=== PATIENT | female | born 1955 | race Caucasian/White ===

== ENCOUNTER → 2017-03-04 | Outpatient (CLI) | payer BC ==
--- NOTE | 2017-03-04 16:28 | DI ---
Indication: ITS.REASON: M19.90 UNSPECIFIED OSTEOARTHRITIS PROCEDURE: KNEE BILAT 3 VIEWS: Encounter: Initial Comparison: March 11, 2016 Findings: Right knee: No acute fracture or dislocation. Mild medial compartment joint space narrowing is similar to the prior study. No joint effusion. Small patellofemoral compartment osteophytes. Left knee: No acute fracture or dislocation. Mild medial compartment joint space narrowing is similar to the prior study. There is medial meniscal chondrocalcinosis with small tricompartmental osteophytes. No gross joint effusion. Impression: Right knee: Stable mild to moderate osteoarthritis. Left knee: Stable mild to moderate osteoarthritis. .
--- NOTE | 2017-03-04 16:45 | DI ---
Indication: ITS.REASON: M19.90 UNSPECIFIED OSTEOARTHRITIS PROCEDURE: LUMBAR SPINE COMP W/O BEND: Encounter: Initial Comparison: None Findings: No acute fracture identified. Alignment of the lumbar spine shows grade 1 anterolisthesis of L4 on L5 which appears degenerative. No subluxation. Mild disk space narrowing at L3-L4 and L4-L5. Degenerative facet disease at L4-S1. Cholecystectomy clips with a displaced clip noted incidentally in the pelvis. The oblique views show no obvious pars defects. Impression: Degenerative disk and facet disease as above. .
== END ==
LOC: IMA 15:50
PROVIDERS: ATTEND Family Medicine
DX: M17.0 Bilateral primary osteoarthritis of knee (principal); M51.36 Other intervertebral disc degeneration, lumbar region

== ENCOUNTER 2017-04-29 07:30 | Inpatient (IN) ==
[~2017-04-29 07:30] MED LIST: ACETAMINOPHEN 500 MG TABLET PO ONE; DEXAMETHASONE 4 MG/ML INJECTION IVP ONE; FAMOTIDINE PREMIX 20 MG/50 ML BAG IV ONE; LIDOCAINE 1% (10mg/ml) 10mL MDV SQ ONE; LR 1,000 ML IV SCH; MELOXICAM 15 MG TABLET PO ONE; METOCLOPRAMIDE 10mg/2ml INJECTION IVP ONE; NOZIN NASAL SWAB NAS ONE; ONDANSETRON 4 MG/2 ML INJECTION IVP ONE; SALINE FLUSH 10ml SYRINGE IVF PRN
[2017-04-29] MEDS ORDERED: EPINEPHrine 0.25 MG, BUPIVACAINE 0.25% PF 30 ML, MORPHINE SULFATE 15 MG, KETOROLAC INJ ... OPSITE ONE (08:00)
--- NOTE | 2017-04-29 10:02 | Anesthesia Preoperative Report ---
Anesthesia Preoperative Record - Date and Time Date: 04/29/17 Preoperative Diagnosis: OA knee M17.12 Proposed Procedure: Left TKA NPO Since Date: 04/29/17 NPO Since Time: 00:00 Allergies/Adverse Reactions: Allergies Allergy/AdvReac Type Severity Reaction Status Date / Time No Known Allergies Allergy Unverified 07/13/13 17:06 - Vital Signs Vital Signs: Temp Pulse Resp BP Pulse Ox 98.3 F 101 H 14 182/85 H 93 04/29/17 09:26 04/29/17 09:44 04/29/17 09:26 04/29/17 09:26 04/29/17 09:26 Height and Weight: Height 1.63 m Weight 86.5 kg Body Mass Index 32.7 - Medications Inpatient Medications: Current Medications Epinephrine HCl 0.25 mg/Bupivacaine HCl 30 ml/Morphine Sulfate 15 mg/Ketorolac Tromethamine 60 mg/Sodium Chloride 65.25 mls @ 1 mls/hr OPSITE INTRAOP ONE PRN Reason: Protocol Stop: 05/02/17 01:14 Lactated Ringer's (Lactated Ringers) 1,000 mls @ 50 mls/hr IV .Q20H PHANI Miscellaneous Medication (Tranexamic 1gm/Ns 100 Irr Mix) 100 ml IR O ONE Stop: 04/29/17 14:50 Sodium Chloride (Iv Flush) 10 - 80 ml IVF PRN PRN PRN Reason: [place] Home Medications: Home Medications Medication Instructions Recorded Confirmed Type Acetaminophen [Tylenol] 1,000 mg PO Q6H PRN 04/07/17 04/29/17 History Calcium Carbonate [Calcium] 500 mg PO DAILY 04/07/17 04/29/17 History Fluoxetine HCl [Prozac] 40 mg PO BID 04/07/17 04/29/17 History Multivitamin [One Daily 1 each PO DAILY 04/07/17 04/29/17 History Multivitamin] Nortriptyline [Pamelor] 1 cap PO HS 04/07/17 04/29/17 History Pregabalin Cap [Lyrica] 1 cap PO BID 04/07/17 04/29/17 History Verapamil HCl [Verapamil ER] 120 mg PO DAILY 04/07/17 04/29/17 History Omeprazole [Prilosec] 1 cap PO ACB 04/23/17 04/29/17 History Is Patient on Beta Jerardo?: No - Medical History Cardiovascular: Reports: Hypertension Neuro/Musculoskeletal: Reports: Depression - Surgical History GI Surgery/Treatments: Reports: Cholecystectomy (Lap) Reproductive Surgery/Treatment: Reports: Hysterectomy (Abd) - Social History Smoking Status: Never smoker Hx Chewing Tobacco Use: No Second Hand Exposure: No Time spent discussing smoking cessation with patient: 3 to 10 minutes Substance Use Type: does not use Alcohol Intake Frequency: holidays/special occasions only - Pertinent Findings EKG Rhythm: Normal Sinus Rhythm - Physical Exam Respiratory Exam: Present: lungs clear Cardiovascular Exam: Present: regular rate and rhythm - Airway Assessment Mallampati Score: II TMD: 3 Fingerbreadths Neck Extension: fair Overall Assessment: no airway concerns - ASA ASA Score: 2 - Plan Regional/Trunk Block: Spinal - Discussion Discussion: Discussed risks/options/alternatives of anesthesia and questions answered. Patient consents. Nursing pain assessment noted. Attestation Statement: Prior to the delivery of any anesthetic medication, I examined the patient, developed the plan, obtained the patient's consent and discussed the risk and benefits of the procedure with the patient/guardian.
[2017-04-29] MEDS ORDERED: PROPOFOL 500 MG/50 ML VIAL IV ONE ×2 (10:15→13:03)
[2017-04-29] MEDS ORDERED: MIDAZOLAM 2mg/2ml INJECTION ONE (10:16)
[2017-04-29] MEDS ORDERED: VANCOMYCIN 1,000 MG INJECTION ONE (11:17)
[2017-04-29] MEDS: CEFAZOLIN 1 G INJECTION IVP ONE ×2 (11:46→15:43)
--- NOTE | 2017-04-29 12:41 | Anesthesia Postoperative Note ---
- Date and Time Date: 04/29/17 Time: 12:41 - Status Patient Participated in Evaluation: Patient Participated in Person Vital Signs: Temp Pulse Resp BP Pulse Ox 98.3 F 101 H 14 138/65 93 04/29/17 09:26 04/29/17 09:44 04/29/17 09:26 04/29/17 10:06 04/29/17 09:26 Respiratory Function: Airway Patent Cardiovascular Function: Regular Pulse EKG Rhythm: Normal Sinus Rhythm Mental Status: Alert and Oriented Pain Intensity: 0 Hydration: IV Infusing Complications During Recover: None Apparent - Follow-Up Instructions Instructions: Per Surgeon
[2017-04-29] MEDS: TRANEXAMIC ACID 1gm/NS 100ml IRR MIX IR ONE ×2 (13:13→15:44)
[2017-04-29] MEDS: VANCOMYCIN 1,000 MG INJECTION IAR ONE ×2 (13:17→15:43)
--- NOTE | 2017-04-29 13:32 | Operative Note ---
- Procedure Date of Admission: 04/29/17 Side: left Preoperative Diagnosis: knee primary DJD Postoperative Diagnosis: Same as preoperative diagnosis. Operation: total knee arthroplasty (left) Surgeon: Kvng Mittal MD Rolling Mill Operator Helper: JODIE Pinedo Complications: None. Regional/Trunk Block: Spinal Peripheral Nerve Block: Saphenous-Left Estimated Blood Loss: See Anesthesia Record. Fluids: Please see Anesthesia Record. Description of Procedure: Mrs. Tellez and her left knee were identified and marked in the preoperative holding area. She was brought back to the operating suite and placed supine on the operating table. Spinal anesthetic was administered. The operative lower extremity was prepped and draped in a sterile fashion. Timeout was performed. She had a varus deformity which is partially correctable. An anterior midline incision followed by medial parapatellar arthrotomy was performed. The tourniquet was inflated briefly during the approach and then again until cementing. Hemostasis was obtained with electrocautery. The patella was resurfaced to a size 29. A distal femoral osteotomy was then performed in 5 of valgus using intramedullary guide. The femur was sized at a 3 and rotation set using the epicondylar axis. Distal femoral cuts were performed with a 4-in-1 cutting block. A proximal tibial cut was then made perpendicular to its long axis using an extramedullary guide. At this point remaining meniscus and osteophytes were removed and joint cocktail was injected throughout soft tissue. Trial components were placed with a 11 mm spacer. This allowed for full extension and flexion and the patella tracked well. The leg was then exsanguinated and the tourniquet inflated to 250 mmHg. The tibia was then stamped at a size 3 at the proper rotation. The bone was then prepared for cementing and [employer] components were cemented into place and allowed to cure in extension. The tourniquet was then let down and hemostasis obtained with electrocautery. I then trialed with a 13 spacer and this felt good with full extension and she was well balanced. Betadine solution was used during the curing period for 3 minutes. 1 g of TXA was allowed to sit in the wound for 5 minutes and then suctioned out. 1 g of vancomycin powder was placed into the joint before the capsulotomy was repaired with #1 Vicryl. I then left my assistant teaching professor close the subcutaneous tissue and skin with 2-0 Vicryl and Monocryl. Dermabond was used on the skin. The drapes were then removed and she was taken to recovery room under the care of anesthesia.
--- NOTE | 2017-04-29 13:52 | History & Physical Update ---
- History and Physical Update Date: 04/29/17 Update: I evaluated this patient and found no changes in the history and clinical exam findings. The treatment plan and recommendations are also unchanged from the previous documentation.
--- NOTE | 2017-04-29 14:18 | Anesthesia Procedure Note ---
Peripheral Nerve Blockade - Procedure Physician: Haroon Mittal MD Date: 04/29/17 Surgical Procedure: Left total knee arthroplasty Discussion: Discussed risks/options/alternatives of anesthesia and questions answered. Patient consents. Nursing pain assessment noted. Block Start: 14:09 Block Stop: 14:14 Blocked Employed: Adductor Canal, Single Injection Indication: Post-Operative Pain Approach: Left Side Confirmed Position: Supine Patient: Consent, Risks/Benefits Discussed, Informed, Post Block Act. Discussed IV Sedation: No Initial Vital Signs: Temperature 98.3 F 04/29/17 09:26 Temperature Source Oral 04/29/17 09:26 Pulse Rate 116 H 04/29/17 09:26 Respiratory Rate 14 04/29/17 09:26 Blood Pressure 182/85 H 04/29/17 09:26 Blood Pressure Mean 117 04/29/17 09:26 Blood Pressure Position Sitting 04/29/17 09:26 Pulse Oximetry 93 04/29/17 09:26 Oxygen Delivery Method 04/29/17 09:26 Post Vital Signs: Temp Pulse Resp BP Pulse Ox 98.3 F 101 H 14 138/65 93 04/29/17 09:26 04/29/17 09:44 04/29/17 09:26 04/29/17 10:06 04/29/17 09:26 Initial Pain Pain Score: 0 Post Block Pain Score: 0 Prep: Duraprep Ultrasound Used?: Yes - Injectate Ropivacaine (%): 0.5 Ropivacaine (mL): 20 Was Epi 1:200,000 Used?: No Injection: Injection made incrementally with constant monitoring and aspiration every ml
[2017-04-29] MEDS ORDERED: NOZIN NASAL SWAB NAS ONE (15:15)
[2017-04-29] MEDS ORDERED: ONDANSETRON 4 MG/2 ML INJECTION IVP PRN (15:15)
[2017-04-29] MEDS ORDERED: DiphenhydrAMINE 25 MG CAPSULE PO PRN (15:15)
[2017-04-29] MEDS ORDERED: DiphenhydrAMINE 50 MG/ML INJECTION IVP PRN (15:15)
[2017-04-29] MEDS ORDERED: LORazepam 1 MG TABLET PO PRN (15:15)
[2017-04-29] MEDS: NS 1,000 ML IV SCH (15:49)
--- NOTE | 2017-04-29 15:52 | XRay Report ---
Indication: postoperative image left knee replacement PROCEDURE: XR knee LT 2V: Encounter: Initial Comparison: March 04, 2017 Findings: Postoperative changes of left total knee replacement are seen. There is expected postoperative subcutaneous gas. No evidence of hardware failure or acute fracture. No retained radiopaque surgical instruments or sponges. Overlying material causing artifact. Impression: New left total knee prosthesis without evidence of immediate complication. .
[2017-04-29] MEDS: NOZIN NASAL SWAB NAS SCH ×2 (15:53→22:29)
[2017-04-29] MEDS: ACETAMINOPHEN 325 MG TABLET PO SCH ×2 (17:06→21:28)
[2017-04-29] MEDS: TRAMADOL 50 MG TABLET PO PRN (19:11)
[2017-04-29] MEDS: CEFAZOLIN 2 G in NS 100 ML IV SCH (19:54)
[2017-04-29] MEDS: ASPIRIN *EC* 325 MG TABLET PO SCH (21:28)
[2017-04-29] MEDS: PREGABALIN 75 MG CAPSULE PO SCH (21:28)
[2017-04-29] MEDS: DOCUSATE SODIUM 100 MG CAPSULE PO SCH (21:29)
[2017-04-29] MEDS ORDERED: SENNOSIDES 8.6 MG TABLET PO SCH (22:00)
[2017-04-29] MEDS ORDERED: NORTRIPTYLINE 25 MG CAPSULE PO SCH (22:00)
[2017-04-30] MEDS: CEFAZOLIN 2 G in NS 100 ML IV SCH (03:55)
[2017-04-30] MEDS: NS 1,000 ML IV SCH (05:45)
[2017-04-30] MEDS: NOZIN NASAL SWAB NAS SCH ×2 (05:57→13:15)
[2017-04-30] MEDS: TRAMADOL 50 MG TABLET PO PRN ×2 (05:57→13:16)
[2017-04-30] MEDS ORDERED: OMEPRAZOLE 20 MG CAPSULE PO SCH (06:30)
[2017-04-30] MEDS: DOCUSATE SODIUM 100 MG CAPSULE PO SCH (08:39)
[2017-04-30] MEDS: ACETAMINOPHEN 325 MG TABLET PO SCH ×2 (08:40→13:15)
[2017-04-30] MEDS: ASPIRIN *EC* 325 MG TABLET PO SCH (08:40)
[2017-04-30] MEDS: PREGABALIN 75 MG CAPSULE PO SCH (08:41)
[2017-04-30] MEDS ORDERED: CALCIUM CARBONATE 500 MG TABLET PO SCH (09:00)
[2017-04-30] MEDS ORDERED: POLYETHYL GLYCOL 3350 17gm PACKET PO SCH (09:00)
[2017-04-30] MEDS ORDERED: VERAPAMIL 120 MG PO SCH (09:00)
[2017-04-30] MEDS ORDERED: FLUoxetine 20 MG CAPSULE PO SCH (09:00)
--- NOTE | 2017-04-30 09:32 | Orthopedic Progress Note ---
Date: Subjective/Severity of Illness: Silvana is doing well. Pain is controlled. No CP, or SOA. She has been mobile with good tolerance. She expects discharge later today. Orthopedic Objective PO Vital signs: Temp Pulse Resp BP Pulse Ox 96.6 F L 98 18 119/57 92 04/30/17 08:00 04/30/17 08:00 04/30/17 08:00 04/30/17 08:00 04/30/17 08:00 Height and Weight: Height 5 ft 4 in Weight 190 lb 11.198 oz Body Mass Index 32.7 - Constitutional General Appearance: Present: alert, no acute distress - Respiratory Exam Present: non-labored - Extremities Exam Extremities: Present: pulses intact - Surgical Site Incision: Mepilex dressing intact, no drainage - Neurological Exam Present: no deficits - Psychiatric Exam Present: alert, normal affect - Labs Result Diagrams: 04/30/17 04:13 04/30/17 04:13 Abnormal lab results 04/30/17 04/30/17 Range/Units 04:13 04:13 WBC 12.9 H (4.5-11.0) T/MM3 RBC 3.45 L (4.00-5.20) M/MM3 Hgb 9.5 L (12-16) GM/DL Hct 30.6 L (36-46) % Glucose 115 H (65-110) MG/DL H & H 04/30/17 Range/Units 04:13 Hgb 9.5 L (12-16) GM/DL Hct 30.6 L (36-46) % Orthopedic Assessment and Plan (1) Arthritis of knee, left Status: Acute Assessment and Plan: Slight WBC elevation likely stress response and related to preop steroids. She is afebrile and has no clinical s/sx of infection. Monitor. Current anti-coagulation protocol for VTE prophylaxis. SCD's. PT/OT services to improve independent function. Discharge Planning per Case Management. Hospital Course Summary Disclaimer: The visit summary below is not to be considered part of the above Progress Note.
--- NOTE | 2017-04-30 11:35 | Discharge Summary ---
Orthopedic Discharge Info Date of admission: 04/29/17 09:03 Anticipated date of discharge: 04/30/17 Primary care physician: Tahmina Siegel MD Attending Physician: Haroon Mittal MD Consults: 04/29/17 06:51 Consult to Anesthesiology [CONS] Routine Consulting Provider: JODIE Aguilera Reason For Exam: Preoperative Assessment 04/29/17 15:15 Case Management Consult [CONS] Routine Reason For Exam: Discharge Planning DME-Walker [CONS] Routine Height: 5 ft 4 in Weight: 190 lb 11.198 oz Comment: change dressing in 2 weeks Total Joint Outpatient Therapy [CONS] Routine Comment: change dressing in 2 weeks - Discharge Diagnosis (1) Arthritis of knee, left Status: Acute - Laboratory Result Diagrams: 04/30/17 04:13 04/30/17 04:13 Laboratory: Abnormal lab results 04/30/17 04/30/17 Range/Units 04:13 04:13 WBC 12.9 H (4.5-11.0) T/MM3 RBC 3.45 L (4.00-5.20) M/MM3 Hgb 9.5 L (12-16) GM/DL Hct 30.6 L (36-46) % Glucose 115 H (65-110) MG/DL H & H 04/30/17 Range/Units 04:13 Hgb 9.5 L (12-16) GM/DL Hct 30.6 L (36-46) % Orthopedic Discharge HPI - HPI Comments This patient was admitted for elective surgical tx of end stage degenerative joint disease that failed to respond to conservative treatment. Further details of this is found in the admission H&P. Orthopedic Hospital Course Hospital course: 04/30/17 11:37 After appropriate preoperative clearance and signing of operative consent, the patient was given IV antibiotics, according to orthopedic protocol. The patient was taken to the operating room and underwent elective left total knee arthroplasty. Following surgery, antibiotics were discontinued less than 24 hours according to joint protocol. Aspirin was initiated and SCDs added for DVT prevention. The dressing was clean, dry, and intact. Pain control was obtained via multimodal approach. Bowel motivation addressed with scheduled and PRN medications. Early mobilization was initiated through PT services. Discharge arrangements made by a collaborative effort between the patient and Case Management. Follow-up is scheduled in 2-3 weeks. Discharge instructions given by orthopedic providers and nursing staff at discharge. Discharge condition was good. Ongoing care required?: No Discharge Plan - Med Rec/Dispo [place] Instructions: [facility] [place] Additional Instructions: [facility] ON 05/04/2017 AT 8:00AM FOR PHYSICAL THERAPY EVAL. PLEASE COMPLETE THE PAPERWORK IN THE [facility] PRIOR TO THE APPOINTMENT. PHONE [phone] Prescriptions: New Aspirin *EC* [Ecotrin] 325 mg PO BID #84 Docusate Sodium [Colace] 100 mg PO BID cap PEG 3350 17gm PACKET [Miralax] 17 gm PO DAILY packet Tramadol [Ultram] 1 - 2 tab PO Q6H PRN #60 PRN Reason: Pain Acetaminophen [Tylenol] 650 mg PO QID Milk of Magnesia [Mom] 30 ml PO DAILY Continue Multivitamin [One Daily Multivitamin] 1 each PO DAILY Calcium Carbonate [Calcium] 500 mg PO DAILY Nortriptyline [Pamelor] 1 cap PO HS Verapamil HCl [Verapamil ER] 120 mg PO DAILY Fluoxetine HCl [Prozac] 40 mg PO BID Pregabalin Cap [Lyrica] 1 cap PO BID Omeprazole [Prilosec] 1 cap PO ACB Discontinued Acetaminophen [Tylenol] 1,000 mg PO Q6H PRN PRN Reason: Pain Discharge Instructions/Outpatient Orders: Final Provider Discharge Instructions Location: Determined By Patient - Disposition 01 Discharged Home, Self-Care
[2017-04-30] MEDS ORDERED: SENNOSIDES 8.6 MG TABLET PO PRN (13:54)
[2017-05-01] MEDS ORDERED: BISACODYL 10 MG SUPPOSITORY RECTALLY SCH (20:00)
== END 2017-04-30 16:00 | disposition home or self-care (01) | DRG 470 ==
LOC: SRG 09:03
PROVIDERS: ADMIT Orthopaedic Surgery; ATTEND Orthopaedic Surgery

== ENCOUNTER 2018-05-17 05:19 | Inpatient (IN) ==
[2018-05-17] MEDS ORDERED: CEFAZOLIN 1 G INJECTION IVP ONE (05:30)
[2018-05-17 05:40] VITALS: BMI 33.6
[2018-05-17] MEDS ORDERED: TRANEXAMIC ACID 1,000 MG in NS 100 ML IV ONE ×2 (06:00→07:00)
[2018-05-17] MEDS ORDERED: FAMOTIDINE PB 20 MG/50 ML BAG IV ONE (06:00)
[2018-05-17] MEDS ORDERED: ACETAMINOPHEN 500 MG TABLET PO ONE (06:00)
[2018-05-17] MEDS ORDERED: DEXAMETHASONE 4 MG/ML INJECTION IVP ONE (06:00)
[2018-05-17] MEDS ORDERED: ONDANSETRON 4 MG/2 ML INJECTION IVP ONE (06:00)
[2018-05-17] MEDS ORDERED: METOCLOPRAMIDE 10mg/2ml INJECTION IVP ONE (06:00)
[2018-05-17] MEDS ORDERED: LIDOCAINE 1% (10mg/ml) 2mL INJ PF SDV ID ONE (06:00)
[2018-05-17] MEDS: LR 1,000 ML IV SCH ×2 (06:11→07:51)
[2018-05-17] MEDS: NOZIN NASAL SWAB NAS SCH ×5 (06:16→21:59)
[2018-05-17] MEDS ORDERED: DEXAMETHASONE 20 MG/5 ML INJECTION IVP SCH (06:30)
[2018-05-17] MEDS ORDERED: VANCOMYCIN 1,000 MG INJECTION ONE (06:53)
[2018-05-17] MEDS ORDERED: MIDAZOLAM 2mg/2ml INJECTION ONE (06:59)
[2018-05-17] MEDS ORDERED: LIDOCAINE 2% (100mg/5mL) 5ml PF SDV ONE (07:00)
[2018-05-17] MEDS ORDERED: PROPOFOL 500 MG/50 ML VIAL ONE (07:00)
[2018-05-17] MEDS ORDERED: BUPIVACAINE 0.75%/DEXTROSE 8.5% SPINAL 2 ML AMPULE IJ ONE ×2 (07:01→07:07)
--- NOTE | 2018-05-17 07:22 | Anesthesia Preoperative Report ---
Anesthesia Preoperative Record - Date and Time Date: 05/17/18 Preoperative Diagnosis: Rt TKA M17.11 NPO Since Date: 05/16/18 NPO Since Time: 20:00 Allergies/Adverse Reactions: Allergies Allergy/AdvReac Type Severity Reaction Status Date / Time No Known Allergies Allergy Verified 05/17/18 05:56 - Vital Signs Vital Signs: Temperature 97.9 F 05/17/18 05:38 Pulse Rate 104 H 05/17/18 05:56 Respiratory Rate 16 05/17/18 05:38 Blood Pressure 133/62 05/17/18 05:38 Pulse Oximetry 98 05/17/18 05:38 Height and Weight: Height 1.6 m Weight 86.2 kg Body Mass Index 33.6 - Medications Inpatient Medications: Current Medications Dexamethasone Sodium Phosphate (Decadron) 10 mg IVP PREOP [facility] Last Admin: 05/17/18 06:24 Dose: 10 mg Epinephrine HCl 0.25 mg/Bupivacaine HCl 30 ml/Ketorolac Tromethamine 60 mg/ Sodium Chloride 62.25 mls @ 1 mls/hr OPSITE INTRAOP ONE; Protocol Stop: 05/19/18 22:14 Tranexamic Acid 1,000 mg/ (Sodium Chloride) 110 mls @ 660 mls/hr IV INTRAOP ONE Stop: 05/17/18 07:09 Lactated Ringer's (Lactated Ringers) 1,000 mls @ 50 mls/hr IV .Q20H [facility] Last Admin: 05/17/18 06:11 Dose: 50 mls/hr Isopropyl Alcohol (Nozin Nasal Swab) 1 each JOSE Q1M PHANI Stop: 05/17/18 13:03 Last Admin: 05/17/18 06:21 Dose: 1 each Sodium Chloride (Iv Flush) 10 - 80 ml IV PRN PRN PRN Reason: [place] Home Medications: Home Medications Medication Instructions Recorded Confirmed Type Calcium Carbonate 500 mg PO DAILY 04/07/17 05/17/18 History Fluoxetine HCl [Prozac] 40 mg PO BID 04/07/17 05/17/18 History Multivitamin [One Daily 1 each PO DAILY 04/07/17 05/17/18 History Multivitamin] Nortriptyline [Pamelor] 25 mg PO HS 04/07/17 05/17/18 History Pregabalin Cap [Lyrica] 75 mg PO BID 04/07/17 05/17/18 History Verapamil HCl [Verapamil ER] 120 mg PO DAILY 04/07/17 05/17/18 History Omeprazole [Prilosec] 20 mg PO ACB 04/23/17 05/17/18 History Tramadol [Ultram] 1 - 2 tab PO Q6H PRN #60 04/30/17 05/17/18 Rx Acetaminophen [Tylenol] 650 mg PO QID PRN 04/20/18 05/17/18 History Aspirin [Aspirin EC] 81 mg PO DAILY 04/20/18 05/17/18 History Atorvastatin Calcium 40 mg PO HS 04/20/18 05/17/18 History - Medical History Respiratory: Reports: Asthma (PT DENIES/small airway disease), Pneumonia (Hx of) , Other (allergic rhinitis) DENIES: Sleep Apnea Cardiovascular: Reports: Hypertension, High Cholesterol Gastrointestional: Reports: Gastroesophageal Reflux Disease, Hiatal Hernia Neuro/Musculoskeletal: Reports: Back Problems (lumbar spinal stenosis; spondylolithesis; compression fracture), Depression, Muscle Weakness (Brace to left knee), Other (fibromyalgia) Other History: Reports: Anesthesia Reactions (HX N/V) - Surgical History GI Surgery/Treatments: Reports: Cholecystectomy (Lap) Musculoskeletal Surgery/Tx: Reports: Total Knee Replacement (Lt TKA ) Reproductive Surgery/Treatment: Reports: Hysterectomy (Abd), Oophorectomy - Social History Smoking Status: Never smoker Hx Chewing Tobacco Use: No Second Hand Exposure: No Substance Use Type: does not use Alcohol Intake Frequency: holidays/special occasions only - Pertinent Findings EKG: Sinus Tachycardia, First Degree AV Block - Physical Exam Respiratory Exam: Present: lungs clear Cardiovascular Exam: Present: regular rate and rhythm - Airway Assessment Mallampati Score: III TMD: 3 Fingerbreadths Neck Extension: fair Overall Assessment: no airway concerns - ASA ASA Score: 2 - Plan Anesthesia: Neuroaxial Regional/Trunk Block: Spinal Peripheral Nerve Block: Adductor Canal-Right - Discussion Discussion: Discussed risks/options/alternatives of anesthesia and questions answered. Patient consents. Nursing pain assessment noted. Present for Discussion: family member Attestation Statement: Prior to the delivery of any anesthetic medication, I examined the patient, developed the plan, obtained the patient's consent and discussed the risk and benefits of the procedure with the patient/guardian. - Additional Information Seen by Anesthesia: Yes
[2018-05-17] MEDS ORDERED: VANCOMYCIN 1,000 MG INJECTION IAR ONE (07:30)
[2018-05-17] MEDS ORDERED: EPINEPHrine PF 0.25 MG, BUPIVACAINE 0.25% PF 30 ML, KETOROLAC INJ 60 MG in NS 30 ML OPSITE ONE (08:00)
[2018-05-17] MEDS ORDERED: ROPIVACAINE 0.5% (5mg/ml) 30ml INJ ONE (08:40)
--- NOTE | 2018-05-17 08:40 | Operative Note ---
- Procedure Preoperative Diagnosis: Right knee primary degenerative joint disease Postoperative Diagnosis: Same as preoperative diagnosis. Surgeon: Kvng Mittal MD Senior Sharepoint Architect: Bryce Moreno Complications: None. Anesthesia: Spinal. Estimated Blood Loss: See Anesthesia Record. Fluids: Please see Anesthesia Record. Description of Procedure: Mrs. Tellez and her right knee were identified and marked in the preoperative holding area. She was brought back to the operating suite. Spinal anesthetic was administered and she was placed supine on the operating table. The right lower extremity was prepped and draped in my normal sterile fashion. Timeout was performed. The Enforta robotic arm was used during the surgery. She had a correctable varus deformity with a 10 flexion contracture. A standard anterior midline incision followed by medial parapatellar arthrotomy was performed. Anterior fat pad and meniscus were removed. The patella was everted and a patellar osteotomy was performed leaving 12 mm of bone. Tibial and femoral arrays and checkpoints were placed both within the original incision. The bone was then registered with the Enforta robot. Osteophytes were removed and gaps were captured both 90 and 0 with correction. To be was balanced with placing the femoral component in 2 of varus and removing the femoral component anteriorly 1 mm. 18 mm gaps were achieved. The Enforta robotic arm was then used to assist with the bone cuts. Posterior osteophytes and remaining meniscus were removed. Trial components were placed. We used a 3 femur and a 3 tibia with a 9 mm spacer and a 29 patella. She tracked well and was well balanced throughout range of motion. The tibia was then stamped the proper rotation. I then cemented the components into place and allowed them to cure in extension. Hemostasis was obtained with electrocautery. After the cement had cured the knee again was taken through range of motion and was well balanced and tracked well. After a final thorough irrigation with normal saline as well as Betadine 1 g vancomycin powder was placed into the knee joint. We then closed the capsule with #1 Vicryl. I then left my assistant controller closed the subcutaneous tissue with both 2-0 Vicryl in an interrupted fashion. The subcutaneous tissue closed with a 4-0 Monocryl followed by Dermabond. Mediplex dressing will be placed and the patient will be taken back to the recovery room under the care of anesthesia.
--- NOTE | 2018-05-17 09:25 | Anesthesia Procedure Note ---
Peripheral Nerve Blockade - Procedure Physician: Haroon Mittal MD Date: 05/17/18 Surgical Procedure: right TKA Discussion: Discussed risks/options/alternatives of anesthesia and questions answered. Patient consents. Nursing pain assessment noted. Block Start: 09:20 Block Stop: :22 Block Employed: Adductor Canal-Right Indication: Post-Operative Pain Approach: Right Side Confirmed Position: Supine Patient: Consent, Risks/Benefits Discussed, Informed, Post Block Act. Discussed IV Sedation: No Initial Vital Signs: Temperature 97.9 F 05/17/18 05:38 Temperature Source Oral 05/17/18 05:38 Pulse Rate 105 H 05/17/18 05:38 Respiratory Rate 16 05/17/18 05:38 Blood Pressure 133/62 05/17/18 05:38 Blood Pressure Mean 85 05/17/18 05:38 Blood Pressure Position Sitting 05/17/18 05:38 Pulse Oximetry 98 05/17/18 05:38 Oxygen Delivery Method 05/17/18 05:38 Post Vital Signs: Temperature 97.9 F 05/17/18 05:38 Pulse Rate 104 H 05/17/18 05:56 Respiratory Rate 16 05/17/18 05:38 Blood Pressure 133/62 05/17/18 05:38 Pulse Oximetry 98 05/17/18 05:38 Initial Pain Pain Score: 0 Post Block Pain Score: 0 Prep: Chlorhexadine/ETOH Ultrasound Used?: Yes - Injectate Ropivacaine (%): 0.5 Ropivacaine (mL): 20 Was Epi 1:200,000 Used?: No Injection: Injection made incrementally with constant monitoring and aspiration every ml
--- NOTE | 2018-05-17 09:26 | Anesthesia Postoperative Note ---
- Date and Time Date: 05/17/18 Time: 09:25 - Status Patient Participated in Evaluation: Patient Participated in Person Vital Signs: Temperature 97.2 F 05/17/18 09:04 Pulse Rate 81 05/17/18 09:04 Respiratory Rate 15 05/17/18 09:04 Blood Pressure 104/43 05/17/18 09:04 Pulse Oximetry 94 05/17/18 09:04 Respiratory Function: Airway Patent Cardiovascular Function: Regular Pulse EKG: Sinus Rhythm Mental Status: Alert and Oriented Pain Intensity: 0 Hydration: Taking PO Fluids Complications During Recover: None Apparent - Follow-Up Instructions Instructions: Per Surgeon
[2018-05-17] MEDS ORDERED: DEXAMETHASONE 20 MG/5 ML INJECTION IVP ONE ×2 (09:40→14:30)
[2018-05-17] MEDS ORDERED: DiphenhydrAMINE 25 MG CAPSULE PO PRN (09:40)
[2018-05-17] MEDS ORDERED: NOZIN NASAL SWAB NAS ONE (09:40)
[2018-05-17] MEDS ORDERED: ONDANSETRON 4 MG/2 ML INJECTION IVP PRN (09:40)
[2018-05-17] MEDS ORDERED: LORazepam 1 MG TABLET PO PRN (09:40)
[2018-05-17] MEDS ORDERED: DiphenhydrAMINE 50 MG/ML INJECTION IVP PRN (09:40)
--- NOTE | 2018-05-17 09:40 | XRay Report ---
Indication: postoperative image PROCEDURE: XR knee RT 2V: Encounter: Initial Comparison: April 13, 2018 Findings: Postoperative changes of right total knee replacement are seen. There is expected postoperative subcutaneous gas. No evidence of hardware failure or acute fracture. No retained radiopaque surgical instruments or sponges. Overlying material causing artifact. Impression: New right total knee prosthesis without evidence of immediate complication. .
[2018-05-17] MEDS: NS 1,000 ML IV SCH ×2 (09:45→22:00)
[2018-05-17] MEDS ORDERED: SALINE FLUSH 10ml SYRINGE IV PRN (12:57)
[2018-05-17] MEDS: ACETAMINOPHEN 325 MG TABLET PO SCH ×3 (14:45→21:59)
[2018-05-17] MEDS: CEFAZOLIN 2 G in NS 100 ML IV SCH ×2 (16:03→22:25)
[2018-05-17] MEDS ORDERED: NORTRIPTYLINE 25 MG CAPSULE PO SCH (21:00)
[2018-05-17] MEDS ORDERED: ATORVASTATIN 40 MG TABLET PO SCH (21:00)
[2018-05-17] MEDS ORDERED: SENNOSIDES 8.6 MG TABLET PO SCH (21:00)
[2018-05-17] MEDS: ASPIRIN *EC* 81 MG TABLET PO SCH (21:59)
[2018-05-17] MEDS: DOCUSATE SODIUM 100 MG CAPSULE PO SCH (21:59)
[2018-05-17] MEDS: PREGABALIN 75 MG CAPSULE PO SCH (22:00)
[2018-05-17] MEDS: NON-FORMULARY MEDICATION 1 EACH EACH (Fluoxetine Hcl [Prozac] 40 MG) PO SCH (22:00)
[2018-05-17] MEDS: TRAMADOL 50 MG TABLET PO PRN (22:05)
[2018-05-18] MEDS ORDERED: OMEPRAZOLE 20 MG CAPSULE PO SCH (06:30)
[2018-05-18] MEDS: NOZIN NASAL SWAB NAS SCH (06:34)
[2018-05-18] MEDS: TRAMADOL 50 MG TABLET PO PRN ×2 (06:38→10:30)
[2018-05-18 07:55] VITALS: O2SAT 96
--- NOTE | 2018-05-18 08:21 | Orthopedic Progress Note ---
Date: Date: 05/18/18 Time: 818 Subjective/Severity of Illness: Silvana is doing great. Minimal pain in the knee. No CP, cough or SOA. She has been up with good tolerance. Dressing is dry. Labs look good. Orthopedic Exam Vital signs: Temperature 98.3 F 05/18/18 07:49 Pulse Rate 96 05/18/18 07:49 Respiratory Rate 18 05/18/18 07:49 Blood Pressure 141/65 H 05/18/18 07:49 Pulse Oximetry 96 05/18/18 07:49 - Constitutional General Appearance: Present: alert, cooperative, no acute distress - Respiratory Exam Present: non-labored - Cardiovascular Exam Present: pedal pulses intact - Extremities Exam Present: pulses intact. Absent: calf tenderness - Dressing Dressing: dry, intact, no drainage - Integumentary Exam Present: pink, warm, dry - Neurological Exam Present: no deficits - Psychiatric Exam Present: alert, normal affect - Labs Result Diagrams: 05/18/18 04:08 05/18/18 04:08 Abnormal lab results 05/18/18 05/18/18 Range/Units 04:08 04:08 Hgb 11.5 L (12-16) GM/DL Chloride 111 H (98-107) MEQ/L BUN 20.0 H (7-17) MG/DL BUN/Creatinine Ratio 29 H (6-26) RATIO Glucose 127 H (65-110) MG/DL Calculated Osmolality 284 H (261-280) MOSM/KG H & H 05/18/18 Range/Units 04:08 Hgb 11.5 L (12-16) GM/DL Orthopedic Assessment and Plan (1) Primary osteoarthritis of right knee Status: Acute Assessment and Plan: Current anti-coagulation protocol for VTE prophylaxis. SCD's. PT/OT services to improve independent function. Discharge Planning per Case Management. - Anticoagulation Therapy Anticoagulation: ASA 81 mg PO BID x6 weeks Hospital Course Summary Disclaimer: The visit summary below is not to be considered part of the above Progress Note.
--- NOTE | 2018-05-18 08:25 | Discharge Summary ---
Letter to PCP Cover Letter: This is a short letter to update you on your patient's status. Silvana Tellez underwent a right total knee arthroplasty by Dr. Mittal on . Aspirin therapy was initiated for DVT prophylaxis. Aspirin should be given BID for six weeks postoperatively. Details for their hospitalization can be found in the discharge summary attached. The patient is scheduled to see you one week after surgery for a post-operative check. I hope you find the discharge summary informative and helpful as you resume care of your patient after their surgery. If our office can be of any assistance, please feel free to contact us any time. Orthopedic Discharge Info Date of admission: 05/17/18 05:19 Primary care physician: Tahmina Siegel MD Attending Physician: Haroon Mittal MD Consults: 05/17/18 05:29 Consult to Anesthesiology [CONS] Routine Reason For Exam: Preoperative Assessment 05/17/18 09:40 Case Management Consult [CONS] Routine Reason For Exam: Discharge Planning DME-Walker [CONS] Routine Height: 5 ft 3 in Weight: 86.2 kg Total Joint Outpatient Therapy [CONS] Routine Comment: Remove dressing in 2 weeks - Discharge Diagnosis (1) Primary osteoarthritis of right knee Status: Acute - Procedures Procedures: Rt TKA 05/17/18 - Laboratory Result Diagrams: 05/18/18 04:08 05/18/18 04:08 Laboratory: Abnormal lab results 05/18/18 05/18/18 Range/Units 04:08 04:08 Hgb 11.5 L (12-16) GM/DL Chloride 111 H (98-107) MEQ/L BUN 20.0 H (7-17) MG/DL BUN/Creatinine Ratio 29 H (6-26) RATIO Glucose 127 H (65-110) MG/DL Calculated Osmolality 284 H (261-280) MOSM/KG H & H 05/18/18 Range/Units 04:08 Hgb 11.5 L (12-16) GM/DL Orthopedic Discharge HPI - HPI Comments This patient was admitted for elective surgical tx of end stage degenerative joint disease that failed to respond to conservative treatment. Further details of this is found in the admission H&P. Orthopedic Hospital Course Hospital course: 05/18/18 08:23 After appropriate preoperative clearance and signing of operative consent, the patient was given IV antibiotics, according to orthopedic protocol. The patient was taken to the operating room and underwent a right total knee arthroplasty on 05/17/18. Following surgery, antibiotics were discontinued less than 24 hours according to joint protocol. Aspirin was initiated and SCDs added for DVT prevention. The dressing was clean, dry, and intact. Pain control was obtained via multimodal approach. Bowel motivation addressed with scheduled and PRN medications. Early mobilization was initiated through PT services. Discharge arrangements made by a collaborative effort between the patient and Case Management. Her post op hgb was 11.5 the morning after surgery. Electrolytes and renal function were normal. Vital signs remained stable. She should remain on aspirin 81mg BID for 6 weeks for DVT coverage. Follow-up is scheduled in 2-3 weeks. Discharge instructions given by orthopedic providers and nursing staff at discharge. Discharge condition was good. Care extended to > 2 midnight stays?: No Discharge Plan - Med Rec/Dispo Referrals/Follow Up: Tahmina Siegel MD [Primary Care Provider] - 05/25/18 9:15 am Bryce Moreno PA [Physician Bar Tender] - 06/08/18 9:45 am Darnell Instructions: [facility] Postop Instructions Prescriptions: New Acetaminophen [Tylenol] 650 mg PO QID tablet Aspirin *EC* [Ecotrin] 81 mg PO BID tablet Docusate Sodium [Colace] 100 mg PO BID capsule Milk of Magnesia [Mom] 30 ml PO DAILY udc PEG 3350 17gm PACKET [Miralax] 17 gm PO DAILY packet Continue Multivitamin [One Daily Multivitamin] 1 each PO DAILY Calcium Carbonate 500 mg PO DAILY Nortriptyline [Pamelor] 25 mg PO HS Verapamil HCl [Verapamil ER] 120 mg PO DAILY Fluoxetine HCl [Prozac] 40 mg PO BID Acetaminophen [Tylenol] 650 mg PO QID PRN PRN Reason: Pain Aspirin [Aspirin EC] 81 mg PO DAILY Tramadol [Ultram] 1 - 2 tab PO Q6H PRN #60 tablet PRN Reason: Pain Pregabalin Cap [Lyrica] 75 mg PO BID Omeprazole [Prilosec] 20 mg PO ACB Atorvastatin Calcium 40 mg PO HS - Disposition 01 Discharged Home, Self-Care - Dismissal Complete Discharge Instructions are:: Complete
[2018-05-18] MEDS ORDERED: Verapamil SR 120 MG TABLET E.R. PO SCH (09:00)
[2018-05-18] MEDS ORDERED: FLUoxetine 20 MG CAPSULE PO SCH (09:00)
[2018-05-18] MEDS ORDERED: POLYETHYL GLYCOL 3350 17gm PACKET PO SCH (09:00)
[2018-05-18] MEDS ORDERED: VERAPAMIL HCL 120 MG PO SCH (09:00)
[2018-05-18] MEDS ORDERED: SENNOSIDES 8.6 MG TABLET PO PRN (09:04)
[2018-05-18] MEDS: ACETAMINOPHEN 325 MG TABLET PO SCH ×2 (10:31→13:40)
[2018-05-18] MEDS: DOCUSATE SODIUM 100 MG CAPSULE PO SCH (10:32)
[2018-05-18] MEDS: ASPIRIN *EC* 81 MG TABLET PO SCH (10:32)
[2018-05-18] MEDS: PREGABALIN 75 MG CAPSULE PO SCH (10:33)
[2018-05-18 11:57] VITALS: BP 137/62; PULSE 91; RESP 18; TEMP 97.9
[2018-05-18] MEDS: NON-FORMULARY MEDICATION 1 EACH EACH (Fluoxetine Hcl [Prozac] 40 MG) PO SCH (13:35)
[2018-05-18] MEDS: NS 1,000 ML IV SCH (13:40)
[2018-05-19] MEDS ORDERED: BISACODYL 10 MG SUPPOSITORY RECTALLY SCH (20:00)
== END 2018-05-18 14:00 | disposition home or self-care (01) | DRG 469 ==
LOC: NMC.PERIOP 05:19 → SRG 09:34
PROVIDERS: ADMIT Orthopaedic Surgery; ATTEND Orthopaedic Surgery